=== PATIENT | male | born 1945 | race Caucasian/White ===

== ENCOUNTER 2018-04-19 11:49 | Inpatient (IN) | payer MEDICARE, OTHER ==
[~2018-04-19] VITALS: Ht 177.8 cm; Wt 79.4 kg
[2018-04-19] MEDS ORDERED: VANCOMYCIN IV 1,000 MG in IV DEXTROSE 5% 250 ML IV ONE (12:15)
[2018-04-19] MEDS ORDERED: IV NORMAL SALINE 1000 ML BAG IV ONE (12:15)
[2018-04-19] MEDS ORDERED: VANCOMYCIN IV 200 ML ONE (12:15)
[2018-04-19 12:23] LABS: BASOPHILS # (AUTO) 0.1 K/uL (0.0-8.0); EOSINOPHILS # (AUTO) 0.1 K/uL (0.0-0.7); EOSINOPHILS % (AUTO) 0.9 % (0.0-7.0); HEMATOCRIT 41.7 % (36.7-47.1); LYMPHOCYTES % (AUTO) 18.5 % (20.5-51.5); MEAN CORPUSCULAR HEMOGLOBIN 31.3 uug (23.8-33.4); MEAN CORPUSCULAR HGB CONC 34 g/dL (32.5-36.3); MEAN CORPUSCULAR VOLUME 93.1 fL (73.0-96.2); MONOCYTES # (AUTO) 0.8 K/uL (2.0-10.0); MONOCYTES % (AUTO) 7.7 % (0.0-11.0); NEUTROPHILS # (AUTO) 7.7 K/uL (1.8-8.9); NEUTROPHILS % (AUTO) 71.9 % (38.5-71.5); PLATELET COUNT (AUTO) 179 K/uL (152-348); RED BLOOD CELL COUNT(AUTO) 4.48 MIL/uL (4.06-5.63); WHITE BLOOD COUNT (AUTO) 10.7 K/uL (3.6-10.2)
[2018-04-19 12:34] LABS: POTASSIUM 4.1 mmol/L (3.5-5.1)
[2018-04-19] MEDS ORDERED: PRAV20TA PO (12:34)
--- NOTE | 2018-04-19 12:37 | NUR ---
Pt resting in [facility], Vancomycin IVPB infusing with no s/s of A/R noted. Per Dr. Wright pt to be admitted to M/S, EPIC paged, pt and are aware of plan of care.
[2018-04-19 12:38] LABS: CARBON DIOXIDE 28 mmol/L (21-32); CHLORIDE 103 mmol/L (98-107); CREATININE 1.1 mg/dL (0.6-1.3); GLUCOSE 98 mg/dL (74-106); UREA NITROGEN, BLOOD 22 mg/dL (7-18)
[2018-04-19 12:51] LABS: ALANINE AMINOTRANSFERASE 27 U/L (16-63); ALKALINE PHOSPHATASE 63 U/L (50-136); ASPARTATE AMINOTRANSFERASE 16 U/L (15-37); BILIRUBIN,DIRECT 0.1 mg/dL (0.0-0.2); BILIRUBIN,TOTAL 0.6 mg/dL (0.2-1.0); TOTAL PROTEIN, SERUM 7.1 g/dL (6.4-8.2)
--- NOTE | 2018-04-19 13:00 | NUR ---
Da Gould at bedside, SBAR report given to Terri RN via telephone.
[2018-04-19] MEDS ORDERED: ONDANSETRON 4 MG/2 ML VIAL IV PRN ×2 (13:15→13:45)
[2018-04-19] MEDS ORDERED: HYDROMORPHONE 1 MG/1 ML DISP.SYRIN IV PRN (13:15)
--- NOTE | 2018-04-19 13:15 | NUR ---
RECEIVED PATIENT IN RRICE AND IV ON THE LEFT ANTECUBITAL, PATIENT ALERT AND ORIENTED X3, ABLE TO MAKE NEEDS KNOWN, ABLE TO ANSWER QUESTIONS. NOTED PATIENT RIGHT HAND SWOLLEN WITH REDNESS. WOUND CONSULT ORDERED. PATIENT AMBULATORY AND CONTINENT. WILL CONTINUE TO MONITOR AND CONTINUE TREATMENT.
[2018-04-19] MEDS ORDERED: HYDROMORPHONE 1 MG/1 ML DISP.SYRIN ONE (13:18)
--- NOTE | 2018-04-19 13:23 | NUR ---
Pt trans to m/s floor, NAD noted.
[2018-04-19 13:43] VITALS: BP 118/66
[2018-04-19] MEDS ORDERED: MORPHINE SULFATE 2 MG/1 ML DISP.SYRIN IV PRN (13:45)
[2018-04-19] MEDS ORDERED: MAGNESIUM HYDROXIDE 30 ML LIQUID UDC PO PRN (13:45)
[2018-04-19] MEDS ORDERED: ZOLPIDEM 5 MG TABLET PO PRN (13:45)
[2018-04-19] MEDS ORDERED: Z GUARD REMEDY PASTE 57 GM TUBE TOP PRN (13:45)
[2018-04-19] MEDS ORDERED: ACETAMINOPHEN 325 MG TABLET PO PRN (13:45)
--- NOTE | 2018-04-19 14:09 | NUR ---
CLINICAL PHARMACY NOTE: VANCOMYCIN PHARMACY TO DOSE Subjective: To start vancomycin in this 72 y/o male for indication of cellulitis Objective: weight 79kg height 177cm BUN 22 Scr 1.1 Wbc 10.7 temp 97.9 1gm vanco x 1 in ER 04/19 @1222 Assessment/Plan Will start vanco regimen of 1250mg q16h, estimated trough of 16.02, first dose tonight at 2100. Will order trough before 4th scheduled dose ( not ordered yet). Will follow renal function and dose per level instead if were to appear unstable. Will follow
[2018-04-19] MEDS: IV NS 1000 ML 1,000 ML IV PRN (15:13)
[2018-04-19 15:22] VITALS: BP 128/72
[2018-04-19] MEDS: HYDROCODONE/APAP 5-325MG TABLET PO PRN ×2 (15:34→20:25)
--- NOTE | 2018-04-19 19:16 | NUR ---
PATIENT RESTING IN BED WATCHING TV , NO ACUTE DISTRESS NOTED, NO C/O PAIN OR DISCOMFORT AT THIS TIME. WILL CONTINUE TREATMENT.
--- NOTE | 2018-04-19 19:45 | NUR ---
Pt awake in bed, AxO x4. at bedside. Discussed plan of care with pt, pt cooperative with care. Antibiotic therapy noted on my shift. IV intact and patent. Pt states he has no pain on hand with no movement. Denies dizziness or SOB. Safety precautions in place. Call light within reach. Will continue to monitor and carry out all orders.
[2018-04-19] MEDS ORDERED: TEMAZEPAM 15 MG CAPSULE PO PRN (20:15)
[2018-04-19 20:21] VITALS: BP 107/51
[2018-04-19] MEDS: VANCOMYCIN IV 1,250 MG in IV DEXTROSE 5% 500 ML IV SCH (20:31)
[2018-04-19] MEDS ORDERED: ATORVASTATIN 10 MG TABLET PO SCH (21:00)
[2018-04-20] MEDS ORDERED: PIPERACILLIN SODIUM/TAZO 3.375 GM VIAL ONE ×2 (00:05→05:46)
[2018-04-20] MEDS: PIPERACILLIN/TAZOBACTAM/D5W 50 ML IV SCH ×3 (00:47→11:58)
[2018-04-20 04:50] VITALS: BP 111/54
[2018-04-20 06:03] LABS: EOSINOPHILS # (AUTO) 0.2 K/uL (0.0-0.7); EOSINOPHILS % (AUTO) 2.8 % (0.0-7.0)
[2018-04-20 06:23] LABS: ALANINE AMINOTRANSFERASE 24 U/L (16-63); ALKALINE PHOSPHATASE 48 U/L (50-136); ASPARTATE AMINOTRANSFERASE 12 U/L (15-37); BILIRUBIN,TOTAL 0.6 mg/dL (0.2-1.0); CARBON DIOXIDE 26 mmol/L (21-32); CHLORIDE 106 mmol/L (98-107); CHOLESTEROL 141 mg/dL (<200); CREATININE 1.2 mg/dL (0.6-1.3); GLUCOSE 100 mg/dL (74-106); HDL CHOLESTEROL 50 mg/dL (40-60); MAGNESIUM 1.8 mg/dL (1.8-2.4); PHOSPHOROUS 3.5 mg/dL (2.5-4.9); POTASSIUM 3.8 mmol/L (3.5-5.1); TOTAL PROTEIN, SERUM 5.8 g/dL (6.4-8.2); TRIGLYCERIDES 66 MG/DL (30-150); UREA NITROGEN, BLOOD 15 mg/dL (7-18)
--- NOTE | 2018-04-20 06:33 | NUR ---
Pt awake, resting in bed. AxO x4, cooperative and pleasant. Pain med given x1 with effect. Denies pain or discomfort at this time. Pt shows no s/s of acute distress. Provided comfort measures t/o shift. Carried out all orders. Call light within reach.
[2018-04-20 06:38] LABS: BASOPHILS % (AUTO) 0.5 % (0.0-2.0); LYMPHOCYTES % (AUTO) 27.5 % (20.5-51.5); MEAN CORPUSCULAR HGB CONC 35 g/dL (32.5-36.3); MEAN CORPUSCULAR VOLUME 92.8 fL (73.0-96.2); MONOCYTES # (AUTO) 0.6 K/uL (2.0-10.0); MONOCYTES % (AUTO) 8.7 % (0.0-11.0); NEUTROPHILS # (AUTO) 4.4 K/uL (1.8-8.9); NEUTROPHILS % (AUTO) 60.5 % (38.5-71.5); PLATELET COUNT (AUTO) 160 K/uL (152-348); RED BLOOD CELL COUNT(AUTO) 3.95 MIL/uL (4.06-5.63)
[2018-04-20 06:39] LABS: HEMATOCRIT 36.7 % (36.7-47.1); HEMOGLOBIN 12.7 g/dL (12.5-16.3); WHITE BLOOD COUNT (AUTO) 7.3 K/uL (3.6-10.2)
[2018-04-20] MEDS ORDERED: PANTOPRAZOLE SODIUM 40 MG TABLET.DR PO SCH (07:00)
--- NOTE | 2018-04-20 07:20 | NUR ---
BEGINNING OF SHIFT PATIENT IS A/O*4, RESTING IN BED, COOPERATIVE, PAIN IN THE R HAND 1-2 BUT WANTS TO MANAGE WITHOUT PAIN MEDS AT THE MOMENT, IV INTACT WITH NS RUNNING AT 75ML.HR. CALL LIGHT WITHIN REACH. SAFETY REINFORCED. COONT WITH CARE PLAN: ABX, WOUND CONSULT, YONG CONSULT.
[2018-04-20] MEDS ORDERED: PRAVASTATIN SODIUM 10 MG PO SCH (09:00)
--- NOTE | 2018-04-20 10:30 | NUR ---
ASSISTED Miguel PAGAN WITH WOUND DEBRIDEMENT RIGHT HAND. CULTURE SENT TO LAB.
[2018-04-20 11:31] VITALS: BP 101/54
--- NOTE | 2018-04-20 12:39 | NUR ---
CLINICAL PHARMACY NOTE: VANCOMYCIN PHARMACY TO DOSE Subjective: To continue vancomycin in this 72 y/o male for indication of cellulitis Objective: weight 79kg height 177cm BUN 15 Scr 1.2 Wbc 7.3 temp 97.8 Assessment/Plan Will continue vanco regimen of 1250mg q16h, estimated trough of 16.02, third dose tomorrow at 0500. Will order trough before 4th scheduled dose ( not ordered yet). Will follow renal function and dose per level instead if were to appear unstable. Will follow
[2018-04-20] MEDS: VANCOMYCIN IV 1,250 MG in IV DEXTROSE 5% 500 ML IV SCH (13:38)
[2018-04-20] MEDS: IV NS 1000 ML 1,000 ML IV PRN (13:42)
[2018-04-20] MEDS ORDERED: SULF1TAB48 PO (13:47)
[2018-04-20] MEDS ORDERED: LEVO500T2 PO (13:47)
[2018-04-20 15:00] VITALS: BP 116/52
[2018-04-20] MEDS ORDERED: MORPHINE SULFATE 4 MG/1 ML DISP.SYRIN IV PRN (15:00)
--- NOTE | 2018-04-20 16:30 | NUR ---
Patient discharged, stable condition, i took him down stairs by wheel chair, is driving him home.
[2018-04-20] MEDS ORDERED: PIPERACILLIN/TAZOBACTAM/D5W 50 ML IV SCH (18:00)
[2018-04-20] MEDS ORDERED: CULTURELLE CAPSULE PO SCH (21:00)
== END 2018-04-20 16:20 | disposition home or self-care (01) | DRG 857 ==
LOC: ER 11:49 → MED 13:05
PROVIDERS: ADMIT Nurse Practitioner Acute Care; ATTEND Nurse Practitioner Acute Care
PROC: 0KBC0ZZ Excision of Right Hand Muscle, Open Approach (ICD-10-PCS; principal; 2018-04-20)
DX: T81.49XA Infection following a procedure, other surgical site, initial encounter (principal); L03.113 Cellulitis of right upper limb; L03.011 Cellulitis of right finger; E78.5 Hyperlipidemia, unspecified; Z90.79 Acquired absence of other genital organ(s)
CPT/HCPCS: 36415; 83605; 83735; 84100; 85025; 87040; 87070; A4663; G0378; J1170; J2543; J3370; J7030; J7060